=== PATIENT | male | born 1945 | race Caucasian/White ===

== ENCOUNTER 2023-05-15 09:24 | Emergency (ER) | payer OTHER, SELFPAY ==
[2023-05-15 09:26] VITALS: BP 96/69
[2023-05-15 09:36] VITALS: BMI 32.8
--- NOTE | 2023-05-15 09:41 | ED.GENMED ---
History of Present Illness
General
Chief Complaint: Headache
Time Seen by Provider: 05/15/23 09:41
Travel History
Have you had any contact with someone who has COVID-19?: No
Do you have any symptoms of coronavirus? Fever > 100 degrees, chills, cough, shortness of breath, sore throat, loss of taste or smell, muscle aches, or headache?: No
History of Present Illness
History of Present Illness:
HPI: The patient presents with intermittent head discomfort. He is on aspirin and thinks he still takes Plavix as well for history of CAD with stent. He recently struck his head on the door frame of the car and also thinks he struck his head going
down the steps on the side of the wall. He did not fall down the steps. He has no other neurologic symptoms.
EXAM:
GENERAL: Well appearing in no distress
HEAD: There is no evidence of craniofacial trauma
HEENT: Moist oral mucosa
CARDIOVASCULAR: No murmurs, normal heart rate and rhythm, No chest wall tenderness
PULMONARY: No respiratory distress, breath sounds are clear and equal
ABDOMEN: Soft with no peritoneal signs, no tenderness
NEUROLOGIC: Excellent strength all extremities, no coordination deficits, normal finger-nose testing
PSYCHIATRIC: Appropriate mental status, normal insight and judgement
EXTREMITIES: Nontender, no edema, moves all extremities equally
SKIN: No rash, no lesions
ED COURSE:
10:10 AM: I initially evaluated patient
NUMBER AND COMPLEXITY OF PROBLEMS ADDRESSED AT THE ENCOUNTER
� Chronic conditions affecting care: CAD, high blood pressure, hyperlipidemia, diabetes
� Acute Exacerbation and/or Progression of Chronic Illness: This is an acute problem
� Differential Diagnosis includes: Nonspecific headache, intracranial hemorrhage, highly doubt GCA as the patient's symptoms are primarily posterior
AMOUNT AND/OR COMPLEXITY OF DATA TO BE REVIEWED AND ANALYZED
� I performed an independent evaluation of and my interpretation is:
EKG:
CT: CT imaging of the brain shows no acute abnormality
X-rays:
Laboratory Studies:
Other:
� Review of other/old records: The patient had cardiac rehab in 2021 as he has known CAD
� Clinical information was obtained by an independent historian: I spoke to the at bedside
� Prescriptions/Medications Considered but not given:
� Further testing considered but not performed:
RISK OF COMPLICATIONS AND/OR MORBIDITY OR MORTALITY OF PATIENT MANAGEMENT
� Social determinants of health affecting care: Lives at home with
� Discussion with other providers:
� Escalation of care including admission/observation vs risk of discharge considered: Given patient's advanced age along with at least questionable head trauma and being on DAPT, will obtain CT imaging however the patient does
have a normal neurologic examination. On reassessment at 10:50 AM, the patient is very comfortable in appearance with normal neurologic exam and mental status. CT imaging negative. I have given him contact information for local neurologist.
Past History
Past History
ED Past Medical History: CAD, COPD, HTN, Hypercholesterolemia, NIDDM and Other (Osteoarthritis of lumbar spine)
ED Past Surgical History: Cardiac (PTCA with stent 2015)
Social History
Tobacco: Former smoker (Quit smoking 2015)
Alcohol: Occasional
Personal:
Living: with family
Employment: Retired
Family History
Family History: Other (Noncontributory)
Phy Exam
Physical Exam
Physical Exam:
See HPI
Course
Orders/Labs/Results
Orders:
Orders
05/15/23 10:15
CT Head W/o Iv Contrast Urgent
Comment:
Reason For Exam: recurrent NGO after two recent head injuries DAPT
Vital Signs
Initial and Last Documented VS:
Initial Vital Signs
Temp Pulse Resp BP Pulse Ox
98.2 F 61 18 96/69 97
05/15/23 09:26 05/15/23 09:26 05/15/23 09:26 05/15/23 09:26 05/15/23 09:26
Last Documented Vital Signs
Temp Pulse Resp BP Pulse Ox
98.2 F 61 18 96/69 97
05/15/23 09:26 05/15/23 09:26 05/15/23 09:26 05/15/23 09:26 05/15/23 09:26
*Critical Care Note
Total Time (30-74mins, 75-104mins- exclusive of procedures): Not Applicable
ED Attending Note
-
Portions of this chart may have been created with voice recognition software.� Occasional wrong word or��sound alike� substitutions may have occurred due to the inherent limitations of voice recognition software.
Discharge Plan
Departure
Patient Disposition: Home (Routine Discharge)
Date of Disposition: 05/15/23
Time of Disposition: 10:48
Patient with high blood pressure during this ER visit?: No
Discharge Problem:
Headache
Prescriptions:
No Action
metoprolol succinate 50 MG tablet extended release 24 hr
50 mg PO DAILY
lisinopril [Zestril] 20 MG tablet
20 mg PO DAILY
aspirin [Cumings Aspirin] 81 MG tablet,delayed release (DR/EC)
81 mg PO DAILY
metformin 1,000 MG tablet
1,000 mg PO BID Qty: 0 0RF
Hold Instructions: Resume on 10/21/21. HOLD post cath- OK to resume on 10/21 in AM
Rx Instructions:
HOLD post cath- do not restart until laboratory manager calls with lab results.
atorvastatin 40 MG tablet
40 mg PO QPM Qty: 90 3RF
amlodipine [Norvasc] 5 mg Tablet
5 mg PO DAILY
fenofibrate micronized 200 mg Capsule
200 mg PO DAILY
hydrochlorothiazide 25 mg Tablet
25 mg PO DAILY
cinnamon bark [Cinnamon] 500 mg Capsule
500 mg PO DAILY
Allergy Relief (cetirizine) 10 mg Capsule
10 mg PO DAILY
clopidogrel [clopidogrel] 75 mg tablet
75 mg PO DAILY Qty: 90 3RF
nitroglycerin 0.4 MG tablet, sublingual
0.4 mg sublingual PRN PRN (Reason: chest pain) Qty: 25 2RF
Fish Oil Capsule
2 cap PO DAILY
Glucosamine Chondroitin 550-30-1 mg Capsule
1 cap PO DAILY
Referrals:
Rome Vargas MD [Active] - Follow up in 1 week
Harjit Spann MD [Family Provider] -
Activity Restrictions/Additional Instructions:
The cause of your symptoms is unclear. The CAT scan of the brain was normal. Follow-up with your primary care doctor for reassessment. I have also given you the contact information for a local neurologist.
Interventions
Interventions:
*Risk Screen - Suicide Last Done: 05/15/23 09:30
*General Assessment Last Done: 05/15/23 09:30
*Neglect/Abuse Screening Last Done: 05/15/23 09:30
*ED COVID-19 Vaccine History Last Done: 05/15/23 09:30
ED- Neurological Assessment Last Done: 05/15/23 10:00
[2023-05-15 10:59] VITALS: BP 121/69
== END 2023-05-15 11:02 | disposition home or self-care (01) ==
LOC: EMR 09:24
PROVIDERS: EMERGENCY PHYSICIAN Emergency Medicine; FAMILY PHYSICIAN Family Medicine
DX: S09.90XA Unspecified injury of head, initial encounter (principal); R51.9 Headache, unspecified; W22.01XA Walked into wall, initial encounter; W22.09XA Striking against other stationary object, initial encounter; Z79.02 Long term (current) use of antithrombotics/antiplatelets
CPT/HCPCS: 99284; 70450

== ENCOUNTER → 2024-01-28 09:44 | Outpatient (REF) | payer OTHER, SELFPAY | LOC: DHVS 09:44 | PROVIDERS: ATTENDING PHYSICIAN Surgery Vascular Surgery; FAMILY PHYSICIAN Family Medicine | DX: I73.9 Peripheral vascular disease, unspecified (principal) | CPT/HCPCS: 93922; 93925 ==

== ENCOUNTER → 2024-01-29 10:52 | Outpatient (REF) | payer OTHER, SELFPAY | LOC: HWRAD 10:52 | PROVIDERS: ATTENDING PHYSICIAN Internal Medicine Cardiovascular Disease; FAMILY PHYSICIAN Family Medicine | DX: I25.10 Atherosclerotic heart disease of native coronary artery without angina pectoris (principal); I71.9 Aortic aneurysm of unspecified site, without rupture | CPT/HCPCS: 71250 ==

== ENCOUNTER → 2025-02-09 08:48 | Outpatient (REF) | payer OTHER, SELFPAY | LOC: RAD 08:48 | PROVIDERS: ATTENDING PHYSICIAN Surgery Vascular Surgery; FAMILY PHYSICIAN Family Medicine | DX: I73.9 Peripheral vascular disease, unspecified (principal) | CPT/HCPCS: 93922 ==